=== PATIENT | female | born 1990 | race Caucasian/White ===

== ENCOUNTER → 2023-11-02 | Outpatient (CLI) | payer OTHER ==
--- NOTE | 2023-11-03 17:39 | MR ---
EXAMINATION TYPE: MR knee LT wo con DATE OF EXAM: 11/02/2023 COMPARISON: Outside left knee x-ray October 18, 2023 HISTORY: Left knee pain and swelling x2 months after injury. TECHNIQUE: Multiplanar, multisequence images of the knee is performed without IV contrast. FINDINGS: MEDIAL MENISCUS: Anterior and posterior horns are intact without tear. LATERAL MENISCUS: Anterior and posterior horns are intact without tear. CRUCIATE LIGAMENTS: The anterior and posterior cruciate ligaments are intact and unremarkable. COLLATERAL LIGAMENTS: The medial collateral ligament and lateral collateral ligament complex are inta ct and unremarkable. EXTENSOR MECHANISM: Visualized quadriceps tendon is intact. Increased signal along the proximal reno lar tendon particularly medial aspect EFFUSION: Small to moderate size suprapatellar joint effusion. POPLITEAL CYST: Small size popliteal/aleman cyst. TRICOMPARTMENT SPACES: Small avulsion type fractures from the medial aspect of the patella. Mild to m oderate patellofemoral compartment joint space narrowing. Lateral subluxation of the patella. There a re medial retinacular abnormalities. No significant spurring. CARTILAGE: Chondromalacia patella with cartilaginous loss along the inferior patellar pole. BONE MARROW SIGNAL: Heterogeneous marked increased T2 signal through the medial aspect of the patella extending centrally. Heterogeneous increased T2 signal involving the lateral aspect of the distal la teral femoral condyle is seen. OTHER: Small amount of fluid in the deep subcutaneous tissue along the lateral aspect of the lateral patella. IMPRESSION: There are tiny bony Avulsion type fractures from the medial aspect of the patella with me dial retinacular abnormalities and lateral subluxation of the patella. There is reactive small to mod erate sized suprapatellar joint effusion and partial tearing of the proximal patellar tendon. There i s associated osseous contusion injury involving the lateral aspect of the distal lateral femoral cond yle.
== END | disposition home or self-care (01) ==
LOC: RADMRIMAIN 18:48
PROVIDERS: ATTEND Orthopaedic Surgery
DX: M25.462 Effusion, left knee (principal); S80.02XA Contusion of left knee, initial encounter; S83.012A Lateral subluxation of left patella, initial encounter; M67.864 Other specified disorders of tendon, left knee; S82.092A Other fracture of left patella, initial encounter for closed fracture; X58.XXXA Exposure to other specified factors, initial encounter

== ENCOUNTER 2023-11-09 14:11 | Emergency (ER) | payer OTHER ==
[2023-11-09 15:11] VITALS: RESP 18
[2023-11-09] MEDS: KETOROLAC 15 MG/ML 1 ML VIAL IM STA (15:27)
[2023-11-09] MEDS: HYDROcodone/APAP 5-325MG 1 EACH TAB PO STA (15:28)
--- NOTE | 2023-11-09 15:39 | ED ---
General Adult HPI - General Chief complaint: Extremity Injury, Lower Stated complaint: Injury to L knee Time Seen by Provider: 11/09/23 15:14 Source: patient, RN notes reviewed, old records reviewed Mode of arrival: ambulatory Limitations: no limitations - History of Present Illness Initial comments: 33-year-old female with left knee pain. Patient has had an ongoing issue with this knee for many months and had an outpatient MRI approximately 1 week ago. She states today she twisted and felt severe pain. Patient has not been able to ambulate and has not been able to move the knee without severe pain. - Related Data Previous Rx's Medication Instructions Recorded HYDROcodone/APAP 5-325MG [[place] 1 tab PO Q6HR PRN #12 tab 11/09/23 5-325] Ibuprofen [Motrin] 600 mg PO Q8HR PRN #24 tab 11/09/23 Allergies Allergy/AdvReac Type Severity Reaction Status Date / Time No Known Allergies Allergy Verified 11/09/23 14:24 Review of Systems ROS Statement: Those systems with pertinent positive or pertinent negative responses have been documented in the HPI. ROS Other: All systems not noted in ROS Statement are negative. Past Medical History Past Medical History: No Reported History History of Any Multi-Drug Resistant Organisms: None Reported Additional Past Surgical History / Comment(s): laminectomy 2011 Past Psychological History: No Psychological Hx Reported Smoking Status: Vaper Past Alcohol Use History: Occasional Past Drug Use History: Marijuana General Exam Limitations: no limitations General appearance: alert, in no apparent distress Head exam: Present: atraumatic, normocephalic Eye exam: Present: normal appearance, PERRL ENT exam: Present: normal exam Neck exam: Present: normal inspection Respiratory exam: Present: normal lung sounds bilaterally. Absent: respiratory distress, wheezes Cardiovascular Exam: Present: regular rate, normal rhythm GI/Abdominal exam: Present: soft. Absent: distended, tenderness Extremities exam: Present: tenderness, joint swelling (Left knee, distal pulses intact) Neurological exam: Present: alert, oriented X3 Skin exam: Present: warm, dry, intact Course Vital Signs 11/09/23 14:21 Temperature 98.5 F Pulse Rate 109 H Respiratory 18 Rate Blood Pressure 155/94 O2 Sat by Pulse 100 Oximetry Medical Decision Making - Medical Decision Making Was pt. sent in by a medical professional or institution (, PA, ASSISTANT CASINO SHIFT MANAGER, urgent care, hospital, or [place] [facility] facility...) When possible be specific @ -No Did you speak to anyone other than the patient for history (EMS, parent, family, police, friend...)? What history was obtained from this source @ -No Did you review nursing and triage notes (agree or disagree)? Why? @ -I reviewed and agree with nursing and triage notes Were old charts reviewed (outside hosp., previous admission, EMS record, old EKG, old radiological studies, urgent care reports/EKG's, [place] [facility] facility records)? Report findings @ -No old charts were reviewed Differential Musculoskeletal Muscular strain, contusion, ligament sprain, fracture, arthritis, septic arthritis, bursitis, cellulitis, muscle spasm, nerve compression, DVT, arterial occlusion, herpes zoster, electrolyte abnormality, tumor.... This is not meant to be in all inclusive list EKG interpreted by me (3pts min.). @ -As above X-rays interpreted by me (1pt min.). @ -X-ray left knee, no displaced fracture or dislocation, joint effusion. CT interpreted by me (1pt min.). @ -None done U/S interpreted by me (1pt. min.). @ -None done What testing was considered but not performed or refused? (CT, X-rays, U/S, labs)? Why? @ -None What meds were considered but not given or refused? Why? @ -None Did you discuss the management of the patient with other professionals (professionals i.e. , PA, ASSISTANT CASINO SHIFT MANAGER, lab, RT, psych nurse, foster care social worker, early learning teacher, teacher, community cultural development officer, continuous pillowcase cutter)? Give summary @ -Case discussed with Sagar lopez for [facility], recommends outpatient follow-up on Tuesday and knee immobilizer. Was smoking cessation discussed for >3mins.? @ -No Was critical care preformed (if so, how long)? @ -No Were there social determinants of health that impacted care today? How? (Homelessness, low income, unemployed, alcoholism, drug addiction, transportation, low edu. Level, literacy, decrease access to med. care, senior care, rehab)? @ -No Was there de-escalation of care discussed even if they declined (Discuss DNR or withdrawal of care, Hospice)? DNR status @ -No What co-morbidities impacted this encounter? (DM, HTN, Smoking, COPD, CAD, Cancer, CVA, ARF, Chemo, Hep., AIDS, mental health diagnosis, sleep apnea, morbid obesity)? @ -None Was patient admitted / discharged? Hospital course, mention meds given and route, prescriptions, significant lab abnormalities, going to OR and other pertinent info. @33-year-old female with remote injury to the left knee with worsening pain today. Patient does have moderate pain upon arrival. She has swelling to the left knee and decreased range of motion secondary to severe pain. Distal pulses are intact. Patient received pain medication with significant improvement in symptoms. X-rays negative for displaced fracture or dislocation. I discussed case with orthopedics who states that the patient has an appointment on Tuesday they recommend knee immobilizer and pain control. Patient will ice and elevate the extremity. Undiagnosed new problem with uncertain prognosis? @ -No Drug Therapy requiring intensive monitoring for toxicity (Heparin, Nitro, Insulin, Cardizem)? @ -No Were any procedures done? @ -No Diagnosis/symptom? @ -Knee sprain, patellar tendon tear Acute, or Chronic, or Acute on Chronic? @ -Acute on chronic Uncomplicated (without systemic symptoms) or Complicated (systemic symptoms)? @ -Default Side effects of treatment? @ -No Exacerbation, Progression, or Severe Exacerbation? @ -No Poses a threat to life or bodily function? How? (Chest pain, [place], [place], pneumonia, PE, COPD, DKA, ARF, appy, cholecystitis, CVA, Diverticulitis, Homicidal, Suicidal, threat to staff... and all critical care pts) @ -No Disposition Clinical Impression: Acute internal derangement of knee, Patellar tendon strain Disposition: HOME SELF-CARE Condition: Fair Instructions (If sedation given, give patient instructions): Ankle Sprain (ED) Prescriptions: Ibuprofen [Motrin] 600 mg PO Q8HR PRN #24 tab PRN Reason: Pain HYDROcodone/APAP 5-325MG [[place] 5-325] 1 tab PO Q6HR PRN #12 tab PRN Reason: Pain Is patient prescribed a controlled substance at d/c from ED?: No Referrals: None,Stated [Primary Care Provider] - 1-2 days Yang Rizzo DO [Doctor of Osteopathic Medicine] - 1-2 days Time of Disposition: 16:59
--- NOTE | 2023-11-09 16:38 | XR ---
EXAMINATION TYPE: XR knee complete LT DATE OF EXAM: 11/09/2023 COMPARISON: None HISTORY: Pain TECHNIQUE: 3 view left knee FINDINGS: There appears to be a small joint effusion. No acute fractures or dislocations are evident. Joint spaces are preserved. Follow up exams can be performed 7-10 days from acute trauma for continued pain. MRI can be performed as clinically indicated. IMPRESSION: 1. No acute osseous abnormality left knee. 2. Small joint effusion. 3. Follow-up MRI can be performed as clinically indicated.
[2023-11-09 17:39] VITALS: BP 120/79; PULSE 80; TEMP 98
== END 2023-11-09 17:15 | disposition home or self-care (01) ==
LOC: EC 14:11
DX: S76.112A Strain of left quadriceps muscle, fascia and tendon, initial encounter (principal); M23.92 Unspecified internal derangement of left knee; F17.290 Nicotine dependence, other tobacco product, uncomplicated; F12.90 Cannabis use, unspecified, uncomplicated; X50.0XXA Overexertion from strenuous movement or load, initial encounter
CPT/HCPCS: 73562; 99283; 96372; L1830; J1885